=== PATIENT | male | born 1960 | race Caucasian/White ===

== ENCOUNTER 2016-12-14 06:43 | Emergency (ER) | payer OTHER ==
[2016-12-14 07:21] LABS: ABSOLUTE NEUTROPHIL COUNT 2.9 K/mm3 (1.8-7.7); BASO % 0.7 % (0.2-1.0); EOS # 0.1 (0.0-0.5); EOS % 2.3 % (0.9-2.9); HEMATOCRIT 45.2 % (32.0-52.0); HEMOGLOBIN 14.9 gm/l (14.0-18.0); IMM NEUT% 0.2 % (0-1); LYMPH # 2.5 (1.0-4.8); LYMPH % 41.3 % (15-45); MEAN CELL VOLUME 85.3 fl (80.0-94.0); MEAN CORPUSCULAR HEMOGLOBIN 28.1 pg (27.0-31.0); MEAN PLATELET VOLUME 9.7 fl (7.4-10.4); MONO # 0.5 (0.0-0.8); MONO % 8.1 % (4-12); NEUT % 47.4 % (43-75); PLATELET COUNT 217 K/mm3 (130-400); RED CELL DISTRIBUTION WIDTH 13.1 % (11.5-14.5)
[2016-12-14] MEDS ORDERED: MECLIZINE HCL 25 MG TABLET ONE (07:21)
[2016-12-14 07:35] LABS: ALB/GLOB RATIO 1.4 (>1.0); ALBUMIN 4.4 gm/dL (3.5-5.7); CALCIUM 10.9 mg/dL (8.6-10.3)
--- NOTE | 2016-12-14 07:41 | CT ---
Exam: CT head without contrast COMPARISON: None INDICATION: Rapid heart rate, vertigo and syncope. TECHNIQUE: CT examination of the head was obtained without contrast. FINDINGS: There is no acute intracranial hemorrhage. There is no abnormal intra or extra-axial fluid collection. Cortical briggs-white matter differentiation is maintained and there is no mass effect or midline shift. Ventricles are normal in size. The visualized paranasal sinuses and mastoid air cells are well aerated. IMPRESSION: No acute intracranial abnormality. Report was uploaded to the EMR at 0737 hours 12/14/2016.
[2016-12-14 07:48] LABS: CKMB ISOENZYME 2.7 ng/ml (0.6-6.3)
--- NOTE | 2016-12-14 07:50 | RAD ---
Exam: Two-view chest COMPARISON: None INDICATION: Syncope and shortness of breath. FINDINGS: PA and lateral views of the chest were obtained. Cardiac silhouette is within normal limits. Lungs are normally inflated. There is minor coarsening of the bronchovascular markings. There is no focal airspace disease or pleural effusion. Bridging osteophytes are noted within the thoracic spine. Hardware is noted within the lower cervical spine but incompletely visualized. Minor irregularity is seen within the right anterior 10th rib may be related to remote fracture in this location. IMPRESSION: No acute pulmonary process.
[2016-12-14 07:54] LABS: THYROID STIMULATING HORMONE 2.95 uIU/ml (0.34-5.60)
[2016-12-14] MEDS ORDERED: LORAZEPAM 2 MG/ML 1ML SDV ONE (09:37)
== END 2016-12-14 11:14 | disposition short-term general hospital (02) ==
LOC: ED 06:43
DX: R55 Syncope and collapse (principal); R42 Dizziness and giddiness; R06.02 Shortness of breath; R00.1 Bradycardia, unspecified; I10 Essential (primary) hypertension